=== PATIENT | male | born 1980 | race Caucasian/White ===

== ENCOUNTER 2022-01-28 18:36 | Emergency (ER) | payer SELFPAY ==
[~2022-01-28] VITALS: Ht 177.8 cm; Wt 95.5 kg
[2022-01-28 18:48] VITALS: BP 149/102; PULSE 91; TEMP 98.3
[2022-01-28] MEDS ORDERED: RISPERDAL M-TAB4 MG (19:02)
[2022-01-28] MEDS ORDERED: TEGRETOL 1100 MG/TAB (19:03)
[2022-01-28] MEDS ORDERED: ATARAX 25MG25 MG/TAB (19:03)
[2022-01-28] MEDS ORDERED: FLEXERIL 1010 MG/TAB PO (20:05)
[2022-01-28] MEDS ORDERED: NAPROSYN500 MG PO (20:05)
[2022-01-28 20:13] LABS: COLLECTION METHOD CLEAN CATCH
[2022-01-28 20:18] LABS: PH 6 (5-8); SQUAMOUS EPITHELIAL 0-2 /hpf (0-10); URINE APPEARANCE Clear (CLEAR/HAZY); URINE BACTERIA None Seen /hpf (NONE SEEN); URINE BILIRUBIN Negative (NEGATIVE); URINE BLOOD Negative (NEGATIVE); URINE COLOR Yellow (YELLOW); URINE GLUCOSE Negative (NEGATIVE); URINE KETONE Negative (NEGATIVE); URINE LEUKOCYTE ESTERASE Negative (NEGATIVE); URINE NITRATE Negative (NEGATIVE); URINE PROTEIN(semi-quant) Negative (NEGATIVE); URINE RBC 0-2 /hpf (0-2); URINE UROBILINOGEN Negative (NEGATIVE)
== END 2022-01-28 20:54 | disposition home or self-care (01) ==
LOC: COL.ER 18:36
PROVIDERS: Nurse Practitioner Primary Care
DX: M62.830 Muscle spasm of back (principal); G89.29 Other chronic pain; F17.210 Nicotine dependence, cigarettes, uncomplicated; Z98.890 Other specified postprocedural states
CPT/HCPCS: J1885

== ENCOUNTER 2022-04-06 06:29 | Emergency (ER) | payer SELFPAY ==
[~2022-04-06] VITALS: Ht 177.8 cm; Wt 95.5 kg
[~2022-04-06 06:29] MED LIST: ATARAX 25MG25 MG/TAB; FLEXERIL 1010 MG/TAB PO; NAPROSYN500 MG PO; RISPERDAL M-TAB4 MG; TEGRETOL 1100 MG/TAB
[2022-04-06 06:52] VITALS: TEMP 98.8
[2022-04-06 07:27] VITALS: BP 153/98; PULSE 84
== END 2022-04-06 07:29 | disposition home or self-care (01) ==
LOC: COL.ER 06:29
DX: S60.455A Superficial foreign body of left ring finger, initial encounter (principal); F17.210 Nicotine dependence, cigarettes, uncomplicated; W45.8XXA Other foreign body or object entering through skin, initial encounter

== ENCOUNTER 2022-04-19 12:24 | Emergency (ER) | payer SELFPAY ==
[~2022-04-19] VITALS: Ht 177.8 cm; Wt 95.5 kg
[2022-04-19 12:30] VITALS: TEMP 98.5
[2022-04-19 12:48] LABS: COLLECTION METHOD CLEAN CATCH
[2022-04-19] MEDS ORDERED: PRINIVIL10 MG PO (13:03)
[2022-04-19] MEDS ORDERED: MOBIC15 MG PO (13:04)
[2022-04-19] MEDS ORDERED: ATARAX 25MG25 MG/TAB PO (13:05)
[2022-04-19 13:12] LABS: MUCOUS Present (NOT PRESENT); SQUAMOUS EPITHELIAL None Seen /hpf (0-10); URINE BACTERIA None Seen /hpf (NONE SEEN)
[2022-04-19 13:13] LABS: URINE APPEARANCE Clear (CLEAR/HAZY); URINE BLOOD 1+ (NEGATIVE); URINE COLOR Yellow (YELLOW); URINE GLUCOSE Negative (NEGATIVE); URINE KETONE Negative (NEGATIVE); URINE NITRATE Negative (NEGATIVE); URINE PROTEIN(semi-quant) 1+ (NEGATIVE); URINE UROBILINOGEN 0.2 E.U/dL (0.2-1.0)
[2022-04-19 13:15] LABS: TRICYCLIC ANTIDEPRESS URINE NEGATIVE
[2022-04-19 13:18] LABS: BASO # 0.1 K/mm3 (0.0-0.2); BASO % 0.5 % (0.0-2.0); EOS # 0.1 K/mm3 (0.0-0.7); EOS % 0.6 % (0.0-4.0); GRAN # 9.7 K/mm3 (1.4-6.5); GRAN % 75.4 % (42.2-75.2); HEMATOCRIT 44.5 % (42.0-52.0); HEMOGLOBIN 15.7 g/dl (13.5-18.0); LYMPH # 1.9 K/mm3 (1.2-3.4); LYMPH % 14.7 % (20.0-51.0); MEAN CELL VOLUME 95 fl (80.0-100.0); MEAN CORPUSCULAR HEMOGLOBIN 33 pg (27-31); MEAN CORPUSCULAR HGB CONC 35 g/dl (33.0-37.0); MONO # 1.1 K/mm3 (0.1-0.6); MONO % 8.4 % (1.7-9.3); PLATELET COUNT 208 K/mm3 (130-400); REDCELL DISTRIBUTION WIDTH-CV 12.7 % (11.5-14.5)
[2022-04-19 13:36] LABS: ALANINE AMINOTRANSFERASE 24 U/L (0-55); ALBUMIN 4.6 gm/dL (3.5-5.0); ALKALINE PHOSPHATASE 67 U/L (40-150); ANION GAP 13 mmol/L (7-16); AST,SGOT 20 U/L (5-34); BILIRUBIN,TOTAL 1.1 mg/dL (0.2-1.2); BLOOD UREA NITROGEN 13 mg/dL (9-21); CALCIUM 9.9 mg/dL (8.4-10.2); CARBON DIOXIDE 24 mmol/L (22-29); CHLORIDE 102 mmol/L (98-107); CREATININE, serum 1.07 mg/dL (0.72-1.25); GLUCOSE 112 mg/dL (70-99); POTASSIUM 3.7 mmol/L (3.5-4.5); SODIUM 139 mmol/L (136-145); TOTAL PROTEIN 7.5 gm/dL (6.2-8.1)
[2022-04-19 13:37] LABS: ACETAMINOPHEN < 1.0 ug/mL (10-30); ALCOHOL(ethanol),MEDICAL < 10 mg/dL (0-10); SALICYLATE < 5.0 mg/dL (15.0-30.0)
[2022-04-19 14:52] VITALS: BP 179/105; PULSE 100
== END 2022-04-19 14:52 | disposition home or self-care (01) ==
LOC: COL.ER 12:24
PROVIDERS: Nurse Practitioner
DX: R45.851 Suicidal ideations (principal); R44.0 Auditory hallucinations; F17.210 Nicotine dependence, cigarettes, uncomplicated; Z20.822 Contact with and (suspected) exposure to COVID-19